=== PATIENT | female | born 1960 | race Caucasian/White ===

== ENCOUNTER 2019-12-11 04:25 | Inpatient (IN) ==
--- OUTSIDE RECORDS SUMMARY | 2019-12-11 04:27 | External Medical Summary | Continuity of Care Document ---
:1960 Author Name Cecy Parr Address Unavailable Unavailable , Care Team Providers Name Role Phone Dana Richards M.D. Unavailable [email or web address] Problems Active medical history not documented Allergies and Adverse Reactions Allergy history not documented Medications Medications not documented Procedures Procedures not documented Immunizations Immunizations not documented Plan of Treatment Planned Observations Planned Goals not documented Results No Known Results Results not documented
--- OUTSIDE RECORDS SUMMARY | 2019-12-11 04:28 | External Medical Summary | Continuity of Care Document ---
:1960 Author Name Cecy Parr Address Unavailable Unavailable , Care Team Providers Name Role Phone Dana Richards M.D. Unavailable [email or web address] Active medical history not documented Allergies and Adverse Reactions Allergy history not documented Medications Medications not documented Procedures Procedures not documented Immunizations Immunizations not documented Plan of Treatment Planned Observations Planned Goals not documented Results No Known Results Results not documented
[2019-12-11] MEDS ORDERED: dilTIAZem HCl 5 MG/ML 5 ML VIAL IV ONE (04:42)
[2019-12-11] MEDS ORDERED: METOPROLOL TARTRATE 1 MG/ML VIAL IV ONE (04:43)
[2019-12-11] MEDS ORDERED: NITROGLYCERIN 2% OINTMENT 30GM TUBE EXT STA (05:17)
[2019-12-11] MEDS ORDERED: FUROSEMIDE 40 MG/4 ML VIAL IV STA (05:17)
[2019-12-11] MEDS: METOPROLOL TARTRATE 1 MG/ML VIAL IV PRN ×2 (05:20→05:28)
[2019-12-11 05:25] LABS: Basophils # (auto) 0.02 K/uL (0-0.2); Basophils % (auto) 0.2 %; Eosinophils # (auto) 0.18 K/uL (0-0.5); Eosinophils % (auto) 1.6 %; Hematocrit (blood only) 39.3 % (37-47); Hemoglobin 12.6 g/dL (12.0-16.0); Immature Granulocytes # (auto) 0.03 K/uL (0.00-0.02); Immature Granulocytes % (auto) 0.3 %; Lymphocytes # (auto) 1.26 K/uL (1.2-3.4); Lymphocytes % (auto) 11.4 %; Mean Corpuscular Hemoglobin 27.9 pg (25-34); Mean Corpuscular Hgb Conc 32.1 g/dL (32-36); Mean Corpuscular Volume 86.9 fL (80-100); Mean Platelet Volume 11.7 fL (7.4-10.4); Monocytes # (auto) 0.62 K/uL (0.11-0.59); Monocytes % (auto) 5.6 %; Neutrophils % (auto) 80.9 %; Platelet Count 181 K/uL (130-400); RDW Coefficient of Variation 13.7 % (11.5-14.5); RDW Standard Deviation 43.4 fL (36.4-46.3); Red Blood Count 4.52 M/uL (4.2-5.4); White Blood Count 11.01 K/uL (4.8-10.8)
[2019-12-11 05:35] LABS: INR 1.1 (0.9-1.1); Partial Thromboplastin Ratio 0.9; Partial Thromboplastin Time 25.6 Seconds (21.0-31.0); Prothrombin Time 11.9 Seconds (9.0-12.0)
[2019-12-11 05:43] LABS: Alanine Aminotransferase 138 U/L (12-78); Albumin Level 3.6 gm/dl (3.4-5.0); Aspartate Aminotransferase 65 U/L (15-37); BUN Creatinine Ratio 21.7 (10-20); Blood Urea Nitrogen 23 mg/dl (7-18); Calcium 8.6 mg/dl (8.5-10.1); Carbon Dioxide 25 mmol/L (21-32); Chloride 107 mmol/L (98-107); Creatinine Clr Calc Pharmacy 65.3 ml/min; Est GFR (African American) 66.9; Est GFR (Non-African American) 57.7; Glucose 288 mg/dl (70-99); Magnesium 1.8 mg/dl (1.8-2.4); Potassium 4.1 mmol/L (3.5-5.1); Sodium 139 mmol/L (136-145)
[2019-12-11 05:48] LABS: Albumin Globulin Ratio 1.1 (0.9-2); Alkaline Phosphatase 128 U/L (45-117); Bilirubin,Total 0.5 mg/dl (0.2-1); Globulin 3.4 gm/dl (2.5-4.0); Troponin I < 0.015 ng/ml (0-0.045)
--- NOTE | 2019-12-11 06:16 | Emergency Department Note ---
History of Present Illness General Chief complaint: Shortness of Breath/Dyspnea Stated complaint: SOB, SUGAR RUNNING HIGH Source: patient Mode of arrival: ambulatory Limitations: no limitations History of Present Illness Provider complaint: Shortness of breath This patient is a 59-year-old female presents emergency department with shortness of breath x1 week, worsening over the last 2 days. Patient states she has been at work at [email or web address] which has become increasingly more difficult. She has multiple medical problems including history of atrial lesion with 2 ablations, diabetes and hypertension but has been off of all of her medications because of lack of insurance. Patient denies any recent fevers, chills, chest pain, abdominal pain, vomiting or diarrhea. Home Medications Home Medications Medication Instructions Recorded Confirmed Type amlodipine 10 mg PO DAILY 12/11/19 12/11/19 History aspirin 81 mg PO DAILY 12/11/19 12/11/19 History atorvastatin 40 mg PO DAILY 12/11/19 12/11/19 History bupropion HCl 300 mg PO DAILY 12/11/19 12/11/19 History carvedilol [Coreg] 25 mg PO BID 12/11/19 12/11/19 History cholecalciferol (vitamin D3) 25 mcg PO DAILY 12/11/19 12/11/19 History cyanocobalamin (vitamin B-12) 1,000 mcg PO DAILY 12/11/19 12/11/19 History ferrous sulfate 325 mg PO BID 12/11/19 12/11/19 History fluoxetine 20 mg PO DAILY 12/11/19 12/11/19 History glipizide 10 mg PO DAILY 12/11/19 12/11/19 History hydralazine 100 mg PO QAM 12/11/19 12/11/19 History linagliptin [Tradjenta] 5 mg PO DAILY 12/11/19 12/11/19 History losartan-hydrochlorothiazide 1 tab PO DAILY 12/11/19 12/11/19 History metformin 1,000 mg PO BID 12/11/19 12/11/19 History spironolactone 25 mg PO DAILY 12/11/19 12/11/19 History Allergies Allergy/AdvReac Type Severity Reaction Status Date / Time felodipine Allergy Unknown . Unverified 12/11/19 05:30 Past Med/Surg History Medical History (Updated 12/11/19 @ 06:28 by Marla Coffey MD) Atrial fibrillation Closed C5 fracture (Acute) Dyslipidemia Hypertension Mitral valve regurgitation LILY (obstructive sleep apnea) Panic disorder (Chronic) Surgical History (Updated 12/11/19 @ 06:22 by Marla Coffey MD) H/O cardiac radiofrequency ablation (Chronic) Social History Feels Safe at Home: Yes Smoking Status: Never smoker Review of Systems See HPI for pertinent positives & negatives. and A total of 10 systems reviewed and were otherwise negative Physical Exam Vital Signs Vital Signs - 24 hr 12/11/19 04:27 12/11/19 04:53 12/11/19 04:55 Temperature 36.3 C L Temperature Source Oral Pulse Rate 156 H 143 H 128 H Pulse Rate from SpO2 Sensor 130 H Respiratory Rate 22 23 Respiratory Effort / Characteristics Non-Labored Spontaneous Respiratory Depth Normal Blood Pressure 168/132 H 172/112 H 172/112 H Blood Pressure Mean 144 136 Pulse Oximetry 94 90 Oxygen Delivery Method Room Air Room Air Oxygen Flow Rate Sepsis Recent Fever Within 48 Hours No Sepsis New/Unexplained Change in Mental Status No Sepsis Action Taken by Nursing No Action Required 12/11/19 04:56 12/11/19 04:59 12/11/19 05:12 Temperature Temperature Source Pulse Rate 119 H 137 H Pulse Rate from SpO2 Sensor 130 H Respiratory Rate 31 H 33 H Respiratory Effort / Characteristics Non-Labored Spontaneous Respiratory Depth Normal Blood Pressure 167/134 H 185/118 H Blood Pressure Mean 150 137 Pulse Oximetry 90 90 Oxygen Delivery Method Room Air Oxygen Flow Rate 90 Sepsis Recent Fever Within 48 Hours Sepsis New/Unexplained Change in Mental Status Sepsis Action Taken by Nursing 12/11/19 05:13 12/11/19 05:15 12/11/19 05:16 Temperature Temperature Source Pulse Rate 127 H 129 H 110 H Pulse Rate from SpO2 Sensor 130 H 127 H 121 H Respiratory Rate 25 H 35 H 31 H Respiratory Effort / Characteristics Respiratory Depth Blood Pressure 161/119 H Blood Pressure Mean 152 Pulse Oximetry 91 91 91 Oxygen Delivery Method Oxygen Flow Rate Sepsis Recent Fever Within 48 Hours Sepsis New/Unexplained Change in Mental Status Sepsis Action Taken by Nursing 12/11/19 05:20 12/11/19 05:28 12/11/19 05:30 Temperature Temperature Source Pulse Rate 118 H 110 H 108 H Pulse Rate from SpO2 Sensor 108 H Respiratory Rate 28 H Respiratory Effort / Characteristics Respiratory Depth Blood Pressure 161/119 H 161/119 H Blood Pressure Mean Pulse Oximetry 96 Oxygen Delivery Method Nasal Cannula Oxygen Flow Rate 2 Sepsis Recent Fever Within 48 Hours Sepsis New/Unexplained Change in Mental Status Sepsis Action Taken by Nursing 12/11/19 05:31 12/11/19 05:46 Temperature Temperature Source Pulse Rate 109 H 100 H Pulse Rate from SpO2 Sensor 108 H 105 H Respiratory Rate 23 28 H Respiratory Effort / Characteristics Respiratory Depth Blood Pressure 164/124 H 133/90 Blood Pressure Mean 140 103 Pulse Oximetry 96 97 Oxygen Delivery Method Nasal Cannula Nasal Cannula Oxygen Flow Rate 2 2 Sepsis Recent Fever Within 48 Hours Sepsis New/Unexplained Change in Mental Status Sepsis Action Taken by Nursing Vital signs reviewed. General: Chronically ill-appearing 59-year-old female, in no significant distress. HEENT: No scleral icterus, PERRLA, neck supple. Atraumatic. Cardiovascular: Tachycardic and irregular Pulmonary: Increased work of breathing with crackles at the bases bilaterally Abdomen: Soft, nontender, nondistended, positive bowel sounds. Musculoskeletal: Atraumatic, no peripheral edema. Neurologic: Patient awake alert and oriented x 3 Skin: Warm, dry, no rash Course Administered Medications Metoprolol Tartrate (Lopressor) 5 mg IV Q5M PRN PRN Reason: Tachycardia Stop: 01/10/20 05:15 Last Admin: 12/11/19 05:28 Dose: 5 mg Documented by: [id number] Admin: 12/11/19 05:20 Dose: 5 mg Documented by: [id number] Discontinued Medications Diltiazem HCl (Cardizem) Confirm Administered Dose 25 mg IV .STK-MED ONE Stop: 12/11/19 04:43 Last Admin: 12/11/19 04:53 Dose: Not Given Documented by: [id number] Furosemide (Lasix) 40 mg IV NOW STA Stop: 12/11/19 05:18 Last Admin: 12/11/19 05:23 Dose: 40 mg Documented by: [id number] Metoprolol Tartrate (Lopressor) 5 mg IV Q5M ONE Stop: 12/11/19 04:44 Last Admin: 12/11/19 04:53 Dose: 5 mg Documented by: [id number] Nitroglycerin (Nitro-Bid 2%) 1 inch EXT NOW STA Stop: 12/11/19 05:18 Last Admin: 12/11/19 05:23 Dose: 1 inch Documented by: [id number] Critical Care Time Critical Care Time: Yes Total Critical Care Time: 45 I have personally spent greater than 45 minutes of critical care time in the direct management of this patient. This includes bedside care, interpretation of diagnostic studies, and testing, discussion with consultants, patient, and family members, and other required patient management activities. This 45 minutes is in excess of all separately billable procedures. Medical Decision Making Differential Diagnosis Differential diagnosis: Etiologies such as infections, reactive airway disease, COPD, pneumonia, pleural effusion, pulmonary edema, ARDS, pneumothorax, CHF, cardiac ischemia, cardiac tamponade, dysrhythmia, anemia, pulmonary embolism, musculoskeletal, gastrointestinal process, as well as others were entertained. Medical Records Attestation: I reviewed the patient's medical records. Home Medications Current Medication List: was personally reviewed by me Laboratory Data Attestation: I reviewed the patient's lab results. Result diagrams: 12/11/19 05:03 12/11/19 05:03 Lab Results 12/11/19 12/11/19 12/11/19 Range/Units 05:03 05:03 05:03 WBC 11.01 H (4.8-10.8) K/uL RBC 4.52 (4.2-5.4) M/uL Hgb 12.6 (12.0-16.0) g/dL Hct 39.3 (37-47) % MCV 86.9 (80-100) fL MCH 27.9 (25-34) pg MCHC 32.1 (32-36) g/dL RDW Std Deviation 43.4 (36.4-46.3) fL RDW Coeff of Winter 13.7 (11.5-14.5) % Plt Count 181 (130-400) K/uL MPV 11.7 H (7.4-10.4) fL Immature Gran % (Auto) 0.3 % Neut % (Auto) 80.9 % Lymph % (Auto) 11.4 % [place] % (Auto) 5.6 % Eos % (Auto) 1.6 % Baso % (Auto) 0.2 % Immature Gran # (Auto) 0.03 H (0.00-0.02) K/uL Neut # (Auto) 8.90 H (1.4-6.5) K/uL Lymph # (Auto) 1.26 (1.2-3.4) K/uL [place] # (Auto) 0.62 H (0.11-0.59) K/uL Eos # (Auto) 0.18 (0-0.5) K/uL Baso # (Auto) 0.02 (0-0.2) K/uL PT 11.9 (9.0-12.0) Seconds INR 1.1 (0.9-1.1) APTT 25.6 (21.0-31.0) Seconds PTT Ratio 0.9 Sodium 139 (136-145) mmol/L Potassium 4.1 (3.5-5.1) mmol/L Chloride 107 (98-107) mmol/L Carbon Dioxide 25 (21-32) mmol/L Anion Gap 7.0 (3-11) BUN 23 H (7-18) mg/dl Creatinine 1.05 (0.6-1.2) mg/dl Est Cr Clr Drug Dosing 65.3 ml/min Est GFR ( Amer) 66.9 Est GFR (Non-Af Amer) 57.7 BUN/Creatinine Ratio 21.7 H (10-20) Glucose 288 H (70-99) mg/dl Calcium 8.6 (8.5-10.1) mg/dl Magnesium 1.8 (1.8-2.4) mg/dl Total Bilirubin 0.5 (0.2-1) mg/dl AST 65 H (15-37) U/L ALT 138 H (12-78) U/L Alkaline Phosphatase 128 H (45-117) U/L Troponin I < 0.015 (0-0.045) ng/ml Total Protein 7.0 (6.4-8.2) gm/dl Albumin 3.6 (3.4-5.0) gm/dl Globulin 3.4 (2.5-4.0) gm/dl Albumin/Globulin Ratio 1.1 (0.9-2) Imaging Data Attestation: I personally reviewed and interpreted this imaging study as follows: My Impression: Chest x-ray to my interpretation reveals evidence of pulmonary edema. Mild cardiomegaly ECG Data Attestation: I personally reviewed and interpreted this ECG as follows: Indication: + SOB/dyspnea Rate (beats per minute): 147 Rhythm: + atrial fibrillation ECG Intervals/blocks: + Prolonged QT ECG [place]: + Normal ECG ST segments: + Normal ST segments and + Nonspecific ST abnormalities ECG Findings: + Q waves (Anterior); no PACs and no PVCs Blood Pressure Blood Pressure Findings: Elevated blood pressure Blood Pressure Disposition: further management by hospitalist MDM Narrative This patient was evaluated and appeared to be in some respiratory discomfort. An order for cardiac monitoring was placed and the patient was found to be in a rapid atrial fibrillation at approximately 145 bpm. Chest x-ray was performed and reveals pulmonary edema. Patient was given IV metoprolol x3 doses for rate control. She did receive topical nitroglycerin paste and 40 mg of IV Lasix. Patient's laboratory work reveals a negative troponin. Glucose is noted to be 288. Patient was symptomatically much improved after the above interventions. Heart rate was much improved at 113, continued atrial fibrillation. I did discuss the case with Dr. Alexa Allen of the hospitalist service who will evaluate the patient for admission and further management. Impression & Plan Atrial fibrillation with rapid ventricular response, CHF (congestive heart failure) Discharge Plan Visit Data Chief Complaint: Shortness of Breath/Dyspnea Stated Complaint: SOB, SUGAR RUNNING HIGH ED Provider: Mrala Coffey Discharge Problem: Atrial fibrillation with rapid ventricular response, CHF (congestive heart failure) Forms Stand Alone Forms: My [facility] Fluid Prescriptions Prescriptions: No Action amlodipine 10 mg Tablet 10 mg PO DAILY RF: 0 aspirin 81 mg Tablet,Delayed Release (Dr/Ec) 81 mg PO DAILY RF: 0 atorvastatin 40 mg Tablet 40 mg PO DAILY RF: 0 carvedilol [Coreg] 25 mg Tablet 25 mg PO BID RF: 0 cholecalciferol (vitamin D3) 25 mcg (1,000 unit) Tablet 25 mcg PO DAILY RF: 0 ferrous sulfate 325 mg (65 mg iron) Tablet 325 mg PO BID RF: 0 hydralazine 100 mg Tablet 100 mg PO UD RF: 0 losartan-hydrochlorothiazide 100-25 mg Tablet 1 tab PO DAILY RF: 0 metformin 1,000 mg Tablet 1,000 mg PO BID RF: 0 glipizide 10 mg Tablet 10 mg PO DAILY RF: 0 fluoxetine 20 mg capsule 20 mg PO DAILY RF: 0 bupropion HCl 300 mg tablet extended release 24 hr 300 mg PO DAILY RF: 0 Tradjenta 5 mg Tablet 5 mg PO DAILY RF: 0 cyanocobalamin (vitamin B-12) 1,000 mcg 1,000 mcg PO DAILY RF: 0 spironolactone 25 mg 25 mg PO DAILY RF: 0 Discharge Problem: CHF (congestive heart failure) Qualifiers: Heart failure type: unspecified Heart failure chronicity: acute Qualified Code(s): I50.9 - Heart failure, unspecified
[2019-12-11] MEDS ORDERED: HEPARIN 25000 UNIT/500 ML D5W IV ONE (07:02)
--- NOTE | 2019-12-11 07:36 | XRay Report ---
XR chest 1V portable CLINICAL HISTORY: Dyspnea COMPARISON STUDY: 07/31/2007 FINDINGS: There is mild asymmetric interstitial edema. There are left basilar opacities, likely repre senting atelectasis or focal edema although a superimposed inflammatory processes cannot be excluded. Small pleural effusions are suspected.[ IMPRESSION: 1. Mild asymmetric pulmonary edema pattern. Suspected small pleural effusions. Left basilar opacities likely representing focal edema or atelectasis although a superimposed infectious/inflammatory proce sses could appear similar. Clinical and radiographic follow-up is recommended ACT 112: Negative or not required by law. Electronically signed by: Jhony Coughlin M.D. 12/11/2019 7:35 AM
[2019-12-11] MEDS ORDERED: ACETAMINOPHEN 325 MG TAB PO PRN (08:16)
[2019-12-11] MEDS ORDERED: METOPROLOL TARTRATE 1 MG/ML VIAL IV PRN (08:16)
[2019-12-11] MEDS ORDERED: ONDANSETRON INJ 2 MG/ML 2 ML VIAL IV PRN (08:16)
[2019-12-11] MEDS ORDERED: Heparin IV Standard *NO* Bolus IV ONE (08:16)
[2019-12-11] MEDS ORDERED: NITROGLYCERIN SL 0.4 MG/TAB TAB SL PRN (08:16)
[2019-12-11] MEDS ORDERED: FUROSEMIDE 40 MG/4 ML VIAL IV SCH (09:00)
[2019-12-11] MEDS ORDERED: INSULIN GLARGINE SOLOSTAR 100 UNITS/ML 3 ML PEN SC SCH (09:00)
[2019-12-11] MEDS ORDERED: LOSARTAN/HCTZ 50/12.5MG TAB PO SCH (09:00)
[2019-12-11] MEDS ORDERED: INSULIN GLARGINE SOLOSTAR 100 UNITS/ML 3 ML PEN SC ONE (09:15)
[2019-12-11] MEDS ORDERED: MAGNESIUM SULFATE / D5W 1 GM/100 ML BAG IV ONE (09:30)
[2019-12-11] MEDS ORDERED: PERFLUTREN LIPID MICROSPHERE (DEFINITY) IV ONE (09:36)
[2019-12-11] MEDS: MAGNESIUM OXIDE 400 MG TAB PO SCH (09:52)
[2019-12-11] MEDS: ASPIRIN 81 MG ECTAB PO SCH (09:52)
[2019-12-11] MEDS: ATORVASTATIN 40 MG TAB PO SCH (09:52)
[2019-12-11] MEDS: INSULIN ASPART 100 UNITS/ML 3 ML PEN SC SCH ×4 (09:53→21:05)
[2019-12-11] MEDS: FUROSEMIDE 20 MG in SYRINGE 0 ML IV SCH ×2 (09:54→17:29)
[2019-12-11] MEDS: HEPARIN SODIUM/DEXTROSE 25,000 UNITS/500 ML BAG IV SCH ×2 (09:54→22:38)
--- NOTE | 2019-12-11 10:17 | History and Physical Report ---
DATE OF ADMISSION: 12/11/2019 CHIEF COMPLAINT: Shortness of breath. 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 The patient last saw Cardiology 1 year ago. The patient says since last 1 year, she did not saw any doctors. She stopped taking her medications since about a year ago because she could not afford the medications. She works in the [employer]. Since about a week, she is getting short of breath which is progressively getting worse. Today she woke up at 4:00 in the morning with acute shortness of breath. She could not breathe and that is the reason she came to the ER. She felt some pressure in the chest, felt sweaty. Has some headache. Denies any fevers, but has some feeling of cold. No nausea, no vomiting. Has some cough on and off, dry cough. Has some runny nose from her allergies and [place] live in [place]. Denies any earaches. No blurred visions, no sore throat, no dysphagia, no abdominal pain. Normal bladder movements, somewhat constipated. Denies any blood in the stools, no hematuria. No swelling in the legs. She says she does not sleep good. Ambulating okay in the house. ALLERGIES: TO FELODIPINE. PAST MEDICAL HISTORY: As mentioned above. PAST SURGICAL HISTORY: Ablation of the heart, colonoscopy, colposcopy of vulva with biopsy, removal of the left ovary, cholecystectomy. MEDICATIONS: Currently not taking any medications. FAMILY HISTORY: Significant for father had lung cancer. Mother has diabetes. Brother has stroke. SOCIAL HISTORY: No smoking, no alcohol, no drug use. REVIEW OF SYMPTOMS: As per HPI. Rest of review of symptoms negative. PHYSICAL EXAMINATION: GENERAL: The patient is morbidly obese, currently not in acute distress. VITAL SIGNS: Temperature 36.3, pulse in 120s, respiratory rate in 20s, blood pressure 148/110's, oxygen 96% on 2 liters. HEENT: No pallor, no icterus. Pupils equal, round, reactive to light. NECK: No JVD, no neck masses seen. CARDIOVASCULAR: S1, S2 heard. Irregular rhythm. No murmurs. RESPIRATORY SYSTEM: Normal AP diameter. No accessory muscle use. Mild bibasilar crackles. No wheezing. ABDOMEN: Soft, bowel sounds present. Nontender. No distention. CENTRAL NERVOUS SYSTEM: Cranial nerves II-XII grossly intact. Nonfocal. EXTREMITIES: No edema, no erythema. LABORATORY DATA: WBC 11, hemoglobin 12.6, hematocrit 10.3, platelets 181. PT 11.9, INR 1.1, APTT 25.6. Sodium 139, potassium 4.1, chloride 107, bicarb 25, BUN 23, creatinine 1.05, serum glucose 288, calcium 8.6, magnesium 1.8. Total bilirubin 0.5, AST 65, ALT 138, alkaline phosphatase 128. Troponin I less than 0.015. Chest x-ray: Pulmonary congestion. EKG: Atrial fibrillation with rapid ventricular response at a rate of 147. ASSESSMENT AND PLAN: This is a 59-year-old female who is noncompliant with her medications, presents with shortness of breath and found to be in AFib and CHF. 1. Rapid AFib. The patient stopped taking her medications about a year ago. She is supposed to be on Coreg 25 mg b.i.d. She has history of paroxysmal SVT, status post ablation in the past around 2007. Received IV Lopressor in the ER. Currently, her heart rates are improving. We will continue with IV Lopressor 5 mg q. 6 hours p.r.n., start on IV heparin. Follow serial cardiac enzymes, echocardiogram. Consult Cardiology for further recommendation. Keep her n.p.o. until seen by Cardiology. 2. CHF, probably acute on chronic diastolic. The patient is supposed to be on hydrochlorothiazide and spironolactone, not taking the medications. We will follow echocardiogram. Received IV Lasix 40 mg in the ER. We will continue with IV Lasix 20 mg b.i.d. for now until further evaluation by Cardiology and follow the response. 3. Diabetes, not taking the medications. We will place on Lantus 5 units b.i.d. and insulin sliding scale, currently n.p.o. We will follow HbA1c levels. 4. History of hypertension. Supposed to be on amlodipine, hydralazine, losartan, hydrochlorothiazide, Coreg. Currently placing her on IV Lopressor p.r.n. We will also continue with Cozaar and hydrochlorothiazide. Monitor blood pressure and adjust her medications. 5. Hyperlipidemia, supposed to be on statin. We will follow the fasting lipid profile. 6. Depression, supposed to be on Prozac and bupropion. Currently not on any medications. 7. Sleep apnea, non tolerant with the CPAP. May need nocturnal pulse ox while she is in the hospital. 8. Morbid obesity, needs counseling. 9. DVT prophylaxis, started on IV heparin. DISPOSITION: Admit to tele floor. Expect to discharge home and follow with family doctor. Level 1 full code as per my discussion with the patient. PT and OT prior to discharge. Social Service to help with discharge planning, and to help with her medications. EVON
[2019-12-11 11:47] LABS: Estimated Average Glucose 220 mg/dl; Hemoglobin A1C 9.3 % (4.5-5.6)
[2019-12-11 12:08] LABS: Chol HDL Ratio 3; Cholesterol 169 mg/dl (0-200); HDL Cholesterol 64 mg/dl; LDL Cholesterol Calculated 91 mg/dl; Triglycerides 72 mg/dl (0-150); Troponin I < 0.015 ng/ml (0-0.045); VLDL Cholesterol 14 mg/dl
[2019-12-11 13:37] LABS: Partial Thromboplastin Ratio 1.4; Partial Thromboplastin Time 37.7 Seconds (21.0-31.0)
[2019-12-11 13:52] LABS: Albumin Level 3.6 gm/dl (3.4-5.0); BUN Creatinine Ratio 18.4 (10-20); Bilirubin,Total 0.8 mg/dl (0.2-1); Creatinine Clr Calc Pharmacy 64.9 ml/min; Est GFR (African American) 67.6; Est GFR (Non-African American) 58.4; Globulin 3.6 gm/dl (2.5-4.0); Magnesium 2.2 mg/dl (1.8-2.4); Potassium 3.4 mmol/L (3.5-5.1); Total Protein 7.2 gm/dl (6.4-8.2)
[2019-12-11] MEDS ORDERED: HEPARIN IV BOLUS 6,000 UNITS in SYRINGE 0 ML IV ONE (14:00)
[2019-12-11] MEDS ORDERED: METOPROLOL TARTRATE 25 MG TAB PO ONE ×2 (14:00→15:15)
--- NOTE | 2019-12-11 14:57 | Cardiology Consultation ---
Date of Consultation December 11, 2019 Assessment & Plan (1) Atrial fibrillation with rapid ventricular response: Patient is a 59-year-old female with hypertension and hypertensive heart disease previously controlled with multiple drug regimen which included as of 1 year ago amlodipine 10 mg p.o. daily carvedilol 25 mg p.o. twice daily hydralazine 100 mg a.m. 100 mg mg noon and 50 mg p.m., losartan 100 mg daily hydrochlorothiazide 25 mg/day Patient presents now off medications for several months with hypertensive urgency, congestive heart failure and atrial fibrillation with rapid response time and duration uncertain. Patient is responding to IV diuretics and heart rate slowed with low-dose beta- paco Plan: Echocardiogram will be reviewed Increase metoprolol 25 mg p.o. every 6 hours for heart rate and blood pressure control Patient received losartan/hydrochlorothiazide we will change to losartan 50 mg/day Continue topical nitrates 1 inch every 6 Continue diuresis with furosemide 20 mg IV twice daily Amlodipine ordered to be restarted will change to p.m. dosing IV heparin already started will warrant anticoagulation long-term (2) Hypertensive urgency, malignant: Secondary to medication noncompliance (3) CHF (congestive heart failure): Echocardiogram reviewed demonstrates mild diffuse LV dysfunction. Troponins negative Suspect secondary to marked hypertension and uncontrolled atrial fibrillation (4) LILY (obstructive sleep apnea): History of Present Illness Reason for Consultation: Hypertensive urgency, new onset atrial fibrillation Requesting Physician: Dr. Bone Attending Physician: Varghese Bone MD History of Present Illness Patient is a 59-year-old female with prior ongoing and past history of 1. Longstanding hypertension with hypertensive heart disease 2. Paroxysmal supraventricular tachycardia status post AV ricky reentry tachycardia ablation 2007 3. Obstructive sleep apnea, intolerant of CPAP 4. Dyslipidemia 5. Type 2 diabetes mellitus Patient presents this admission noting having discontinued her medications due to cost multiple months in the past. Had been feeling poorly for approximately 1 week and presented due to signs of symptoms of shortness of breath and orthopnea. On presentation was found to be markedly hypertensive and in atrial fibrillation with uncontrolled ventricular response rate. Chest x-ray with moderate volume overload congestion. Patient was treated with IV metoprolol topical nitrates and IV furosemide now feeling more comfortable. Patient is referred now for further evaluation. As noted patient notes having felt poorly for at least 1 week's time but presented due to marked orthopnea and shortness of breath. No chest pains no sense of tachypalpitations no dizziness lightness syncope or near syncope. No prior history of TIA or stroke. No recent bleeding difficulties melena hematochezia. No fevers chills or unexplained infections. Weight is been gradually trending upward. Not following glucoses Mild headache on presentation but no other acute complaints no visual changes. Allergies Allergy/AdvReac Type Severity Reaction Status Date / Time felodipine Allergy Unknown . Unverified 12/11/19 05:30 Home Medications Home Medications Medication Instructions Recorded Confirmed Type amlodipine 10 mg PO DAILY 12/11/19 12/11/19 History aspirin 81 mg PO DAILY 12/11/19 12/11/19 History atorvastatin 40 mg PO DAILY 12/11/19 12/11/19 History bupropion HCl 300 mg PO DAILY 12/11/19 12/11/19 History carvedilol [Coreg] 25 mg PO BID 12/11/19 12/11/19 History cholecalciferol (vitamin D3) 25 mcg PO DAILY 12/11/19 12/11/19 History cyanocobalamin (vitamin B-12) 1,000 mcg PO DAILY 12/11/19 12/11/19 History ferrous sulfate 325 mg PO BID 12/11/19 12/11/19 History fluoxetine 20 mg PO DAILY 12/11/19 12/11/19 History glipizide 10 mg PO DAILY 12/11/19 12/11/19 History hydralazine 100 mg PO UD 12/11/19 12/11/19 History linagliptin [Tradjenta] 5 mg PO DAILY 12/11/19 12/11/19 History losartan-hydrochlorothiazide 1 tab PO DAILY 12/11/19 12/11/19 History metformin 1,000 mg PO BID 12/11/19 12/11/19 History spironolactone 25 mg PO DAILY 12/11/19 12/11/19 History Patient History Medical History (Updated 12/11/19 @ 15:13 by Sb Arana MD) Atrial fibrillation Closed C5 fracture (Acute) Dyslipidemia Hypertension Mitral valve regurgitation LILY (obstructive sleep apnea) Panic disorder (Chronic) Surgical History (Updated 12/11/19 @ 06:22 by Marla Coffey MD) H/O cardiac radiofrequency ablation (Chronic) Social History Preferred Language: Citizen Of [place] Communication Ability: Effective Duplex Trimmer Required: No Beliefs That Will Affect Care: None Current Living Situation: Spouse Other Information That Helps Us Care for You: No Feels Safe at Home: Yes Safety Concerns: Feels Safe At This Time Smoking Status: Former smoker Hx Alcohol Use: No Hx Substance Use: No Physical Exam Constitutional: + morbidly obese Eyes: PERRL, conjunctivae normal, anicteric sclerae ENMT: external ear and nose normal, oropharynx normal Respiratory: Auscultation: + diminished lung sounds and + rales (Basilar) Cardiovascular: Rate/Rhythm: + tachycardic and + irregularly irregular Heart Sounds: normal S1, normal S2 and + murmur (Grade 1/6 systolic no diastolic) Palpation: no heave and S3 nonpalpable Vessels: normal peripheral pulses; no carotid bruit Extremities: no edema Gastrointestinal (Abdomen): normal bowel sounds, soft, nontender, no hepatosplenomegaly Musculoskeletal: no cyanosis or clubbing, extremities motor strength 5/5 Neurologic: PERRL, EOMI, accommodation nl, no face palsy, no dysarthria Psychiatric: A+Ox3, euthymic affect Results & Data ([facility]) Vital Signs (Past 12 Hours) Vital Signs Temp Pulse Pulse Resp BP BP Pulse Ox 12/11/19 12:00 36.7 C 108 H 16 157/87 H 92 12/11/19 08:21 36.5 C 110 H 20 162/101 H 93 12/11/19 07:30 105 H 23 158/132 H 95 12/11/19 07:16 108 H 26 H 145/116 H 95 12/11/19 07:15 107 H 24 96 12/11/19 07:00 112 H 23 127/102 H 95 12/11/19 06:47 113 H 22 96 12/11/19 06:46 111 H 25 H 148/127 H 96 12/11/19 06:31 121 H 33 H 173/135 H 96 12/11/19 06:16 120 H 26 H 187/162 H 96 12/11/19 06:15 113 H 31 H 96 12/11/19 06:02 103 H 22 144/98 H 97 12/11/19 06:00 106 H 26 H 96 12/11/19 05:47 99 H 24 97 12/11/19 05:46 100 H 28 H 133/90 97 12/11/19 05:31 109 H 23 164/124 H 96 12/11/19 05:30 108 H 28 H 96 12/11/19 05:28 110 H 161/119 H 12/11/19 05:20 118 H 161/119 H 12/11/19 05:16 110 H 31 H 161/119 H 91 12/11/19 05:15 129 H 35 H 91 12/11/19 05:13 127 H 25 H 91 12/11/19 05:12 137 H 33 H 185/118 H 90 12/11/19 04:59 119 H 31 H 167/134 H 12/11/19 04:56 90 12/11/19 04:55 128 H 23 172/112 H 90 12/11/19 04:53 143 H 172/112 H 12/11/19 04:27 36.3 C L 156 H 22 168/132 H 94 Laboratory Results Laboratory Results - last 24 hr 12/11/19 12/11/19 12/11/19 05:03 05:03 05:03 WBC 11.01 H RBC 4.52 Hgb 12.6 Hct 39.3 MCV 86.9 MCH 27.9 MCHC 32.1 RDW Std Deviation 43.4 RDW Coeff of Winter 13.7 Plt Count 181 MPV 11.7 H Immature Gran % (Auto) 0.3 Neut % (Auto) 80.9 Lymph % (Auto) 11.4 [place] % (Auto) 5.6 Eos % (Auto) 1.6 Baso % (Auto) 0.2 Immature Gran # (Auto) 0.03 H Neut # (Auto) 8.90 H Lymph # (Auto) 1.26 [place] # (Auto) 0.62 H Eos # (Auto) 0.18 Baso # (Auto) 0.02 PT 11.9 INR 1.1 APTT 25.6 PTT Ratio 0.9 Sodium 139 Potassium 4.1 Chloride 107 Carbon Dioxide 25 Anion Gap 7.0 BUN 23 H Creatinine 1.05 Est Cr Clr Drug Dosing 65.3 Est GFR ( Amer) 66.9 Est GFR (Non-Af Amer) 57.7 BUN/Creatinine Ratio 21.7 H Glucose 288 H POC Glucose Estimat Average Glucose Hemoglobin A1c Calcium 8.6 Magnesium 1.8 Total Bilirubin 0.5 AST 65 H ALT 138 H Alkaline Phosphatase 128 H Troponin I < 0.015 Total Protein 7.0 Albumin 3.6 Globulin 3.4 Albumin/Globulin Ratio 1.1 Triglycerides Cholesterol LDL Cholesterol, Calc VLDL Cholesterol, Calc HDL Cholesterol Cholesterol/HDL Ratio TSH 12/11/19 12/11/19 12/11/19 08:14 08:31 08:32 WBC RBC Hgb Hct MCV MCH MCHC RDW Std Deviation RDW Coeff of Winter Plt Count MPV Immature Gran % (Auto) Neut % (Auto) Lymph % (Auto) [place] % (Auto) Eos % (Auto) Baso % (Auto) Immature Gran # (Auto) Neut # (Auto) Lymph # (Auto) [place] # (Auto) Eos # (Auto) Baso # (Auto) PT INR APTT PTT Ratio Sodium 141 Potassium 3.4 L D Chloride 105 Carbon Dioxide 28 Anion Gap 8.0 BUN 19 H Creatinine 1.04 Est Cr Clr Drug Dosing 64.9 Est GFR ( Amer) 67.6 Est GFR (Non-Af Amer) 58.4 BUN/Creatinine Ratio 18.4 Glucose 233 H POC Glucose 315 H* 322 H* Estimat Average Glucose Hemoglobin A1c Calcium 9.0 Magnesium 2.2 Total Bilirubin 0.8 AST 46 H ALT 135 H Alkaline Phosphatase 130 H Troponin I Total Protein 7.2 Albumin 3.6 Globulin 3.6 Albumin/Globulin Ratio 1.0 Triglycerides Cholesterol LDL Cholesterol, Calc VLDL Cholesterol, Calc HDL Cholesterol Cholesterol/HDL Ratio TSH 12/11/19 12/11/19 12/11/19 11:18 11:18 11:33 WBC RBC Hgb Hct MCV MCH MCHC RDW Std Deviation RDW Coeff of Winter Plt Count MPV Immature Gran % (Auto) Neut % (Auto) Lymph % (Auto) [place] % (Auto) Eos % (Auto) Baso % (Auto) Immature Gran # (Auto) Neut # (Auto) Lymph # (Auto) [place] # (Auto) Eos # (Auto) Baso # (Auto) PT INR APTT PTT Ratio Sodium Potassium Chloride Carbon Dioxide Anion Gap BUN Creatinine Est Cr Clr Drug Dosing Est GFR ( Amer) Est GFR (Non-Af Amer) BUN/Creatinine Ratio Glucose POC Glucose 264 H Estimat Average Glucose 220 Hemoglobin A1c 9.3 H Calcium Magnesium Total Bilirubin AST ALT Alkaline Phosphatase Troponin I < 0.015 Total Protein Albumin Globulin Albumin/Globulin Ratio Triglycerides 72 Cholesterol 169 LDL Cholesterol, Calc 91 VLDL Cholesterol, Calc 14 HDL Cholesterol 64 Cholesterol/HDL Ratio 3 TSH 1.580 12/11/19 13:02 WBC RBC Hgb Hct MCV MCH MCHC RDW Std Deviation RDW Coeff of Winter Plt Count MPV Immature Gran % (Auto) Neut % (Auto) Lymph % (Auto) [place] % (Auto) Eos % (Auto) Baso % (Auto) Immature Gran # (Auto) Neut # (Auto) Lymph # (Auto) [place] # (Auto) Eos # (Auto) Baso # (Auto) PT INR APTT 37.7 H PTT Ratio 1.4 Sodium Potassium Chloride Carbon Dioxide Anion Gap BUN Creatinine Est Cr Clr Drug Dosing Est GFR ( Amer) Est GFR (Non-Af Amer) BUN/Creatinine Ratio Glucose POC Glucose Estimat Average Glucose Hemoglobin A1c Calcium Magnesium Total Bilirubin AST ALT Alkaline Phosphatase Troponin I Total Protein Albumin Globulin Albumin/Globulin Ratio Triglycerides Cholesterol LDL Cholesterol, Calc VLDL Cholesterol, Calc HDL Cholesterol Cholesterol/HDL Ratio TSH (1) CHF (congestive heart failure) Heart failure chronicity: acute Heart failure type: unspecified Qualified Code(s): I50.9 - Heart failure, unspecified
[2019-12-11] MEDS: ACETAMINOPHEN 325 MG TAB PO PRN (15:36)
[2019-12-11] MEDS: NITROGLYCERIN 2% OINTMENT 30GM TUBE EXT SCH ×2 (15:41→21:11)
[2019-12-11] MEDS ORDERED: POTASSIUM CHLORIDE 20 MEQ TABCR PO ONE (16:00)
--- NOTE | 2019-12-11 16:49 | Hospitalist Progress Note ---
Date of Service December 11, 2019 Assessment & Plan (1) Atrial fibrillation with rapid ventricular response: -"This is a 59-year-old female with past medical history significant for type 2 diabetes; hyperlipidemia; obstructive sleep apnea, non tolerant to CPAP; hypertensive heart disease; history of hypertension; history of aortic valve sclerosis; obesity; history of uterine leiomyoma; history of ocular hypertension; depression,panic disorder, history of paroxysmal supraventricular tachycardia, the patient is 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 The patient last saw Cardiology 1 year ago. The patient says since last 1 year, she did not saw any doctors. She stopped taking her medications since about a year ago because she could not afford the medications" because of loss of health insurance -presented to the ED on 12/11/2019 with shortness of breath symptoms and also because of hyperglycemia and found to have atrial fibrillation with rapid ventricualr response -after initial empiric treatments by ED provider and admitting physician including starting IV heparin drip on admission, cardiology currently titrating rate control medication as metoprolol 25 mg q6 hours for now -continue to monitor on telemetry (2) Diabetes type 2, uncontrolled: -Hemoglobin 9.3 on 12/11/2019 -on sliding scale insulin, given 10 units of Lantus with plans for 10 units daily for now and possibly need up titration -diabetic education, will need outpatient ophthalmology testing because of diabetes -diabetic diet Dyslipidemia -LDL 93, give statin (3) Hypertension: -as per cardiology 12/11/2019 "Patient received losartan/hydrochlorothiazide we will change to losartan 50 mg/day. Continue topical nitrates 1 inch every 6h. Continue diuresis with furosemide 20 mg IV twice daily. Amlodipine ordered to be restarted will change to p.m. dosing" (4) CHF (congestive heart failure): -as per cardiology "Echocardiogram reviewed demonstrates mild diffuse LV dysfunction. Troponins negative. Suspect secondary to marked hypertension and uncontrolled atrial fibrillation" Sleep apnea, non tolerant with the CPAP Morbid obesity with BMI 39.1 -on room air currently. monitor vitals at night -will need primary care involvement for weight loss strategies Depression -not on previous home medications of Prozac and bupropion -patient is tearful when discussing with her current health issues on 12/11/2019 DVT prophylaxis: on IV heparin drip Full Code Admission and Anticipated Discharge Date Admission Date: December 11, 2019 Subjective Patient with atrial fibrillation with heart rates in low 100s. On IV heparin. no chest pain. no abdomen pain. no nausea. no vomiting. no headache. no dizziness Review of Systems Review of Systems: All systems reviewed & are unremarkable except as noted in Subjective Physical Exam Constitutional: + obese and comfortable Eyes: PERRL, conjunctivae normal, anicteric sclerae EOM intact bilaterally ENMT: external ear and nose normal, oropharynx normal Neck: normal visual inspection Respiratory: normal respiratory effort, lungs clear to auscultation Cardiovascular: Rate/Rhythm: + tachycardic and + irregularly irregular Gastrointestinal (Abdomen): normal bowel sounds, soft, nontender, no hepatosplenomegaly Musculoskeletal: Head/Neck/Chest: normocephalic and head atraumatic Neurologic: PERRL, EOMI, accommodation nl, no face palsy, no dysarthria CN's II-XI intact bilaterally Psychiatric: Orientation: alert, oriented x 3 and cooperative Results & Data Results & Data ([facility]) Vital Signs (Past 12 Hours) Vital Signs Temp Pulse Pulse Resp BP BP Pulse Ox 12/11/19 15:12 36.9 C 108 H 21 145/73 H 93 12/11/19 12:00 36.7 C 108 H 16 157/87 H 92 12/11/19 08:21 36.5 C 110 H 20 162/101 H 93 12/11/19 07:30 105 H 23 158/132 H 95 12/11/19 07:16 108 H 26 H 145/116 H 95 12/11/19 07:15 107 H 24 96 12/11/19 07:00 112 H 23 127/102 H 95 12/11/19 06:47 113 H 22 96 12/11/19 06:46 111 H 25 H 148/127 H 96 12/11/19 06:31 121 H 33 H 173/135 H 96 12/11/19 06:16 120 H 26 H 187/162 H 96 12/11/19 06:15 113 H 31 H 96 12/11/19 06:02 103 H 22 144/98 H 97 12/11/19 06:00 106 H 26 H 96 12/11/19 05:47 99 H 24 97 12/11/19 05:46 100 H 28 H 133/90 97 12/11/19 05:31 109 H 23 164/124 H 96 12/11/19 05:30 108 H 28 H 96 12/11/19 05:28 110 H 161/119 H 12/11/19 05:20 118 H 161/119 H 12/11/19 05:16 110 H 31 H 161/119 H 91 12/11/19 05:15 129 H 35 H 91 12/11/19 05:13 127 H 25 H 91 12/11/19 05:12 137 H 33 H 185/118 H 90 12/11/19 04:59 119 H 31 H 167/134 H 12/11/19 04:56 90 12/11/19 04:55 128 H 23 172/112 H 90 12/11/19 04:53 143 H 172/112 H (1) CHF (congestive heart failure) Heart failure chronicity: acute Heart failure type: unspecified Qualified Code(s): I50.9 - Heart failure, unspecified
[2019-12-11] MEDS ORDERED: METOPROLOL TARTRATE 25 MG TAB PO SCH (21:00)
[2019-12-11] MEDS: METOPROLOL TARTRATE 25 MG TAB PO SCH (21:05)
[2019-12-11] MEDS: AMLODIPINE BESYLATE 5 MG TAB PO SCH (21:05)
[2019-12-11 21:08] LABS: Partial Thromboplastin Ratio 2.6
[2019-12-11 21:16] LABS: Partial Thromboplastin Time 71.8 Seconds (21.0-31.0)
--- NOTE | 2019-12-11 23:37 | Electrocardiogram Report ---
Test Reason : Blood Pressure : / mmHG Vent. Rate : 147 BPM Atrial Rate : 150 BPM P-R Int : 000 ms QRS Dur : 066 ms QT Int : 304 ms P-R-T Axes : 000 034 -56 degrees QTc Int : 475 ms Poor data quality, interpretation may be adversely affected Atrial fibrillation with rapid ventricular response Septal infarct , age undetermined Abnormal ECG When compared with ECG of 07-SEP-2010 12:59, Atrial fibrillation has replaced Sinus rhythm HR has increased by 81 bpm Confirmed by Maurilio Oconnell ([id number]) on 12/11/2019 11:36:37 PM Referred By: REFERRED SELF Confirmed By:Maurilio Oconnell
[2019-12-12] MEDS: METOPROLOL TARTRATE 25 MG TAB PO SCH ×4 (01:23→17:17)
[2019-12-12] MEDS: ACETAMINOPHEN 325 MG TAB PO PRN (02:04)
[2019-12-12 03:19] LABS: Partial Thromboplastin Ratio 2.2
[2019-12-12 03:43] LABS: Partial Thromboplastin Time 61.8 Seconds (21.0-31.0)
[2019-12-12] MEDS: NITROGLYCERIN 2% OINTMENT 30GM TUBE EXT SCH ×2 (04:59→10:20)
[2019-12-12 06:11] LABS: Basophils # (auto) 0.03 K/uL (0-0.2); Basophils % (auto) 0.3 %; Eosinophils % (auto) 2.1 %; Hematocrit (blood only) 39.3 % (37-47); Hemoglobin 12.6 g/dL (12.0-16.0); Immature Granulocytes # (auto) 0.01 K/uL (0.00-0.02); Immature Granulocytes % (auto) 0.1 %; Lymphocytes # (auto) 2.07 K/uL (1.2-3.4); Lymphocytes % (auto) 21.5 %; Mean Corpuscular Hemoglobin 28.1 pg (25-34); Mean Corpuscular Hgb Conc 32.1 g/dL (32-36); Mean Corpuscular Volume 87.5 fL (80-100); Mean Platelet Volume 11.7 fL (7.4-10.4); Monocytes # (auto) 0.68 K/uL (0.11-0.59); Monocytes % (auto) 7.1 %; Neutrophils # (auto) 6.65 K/uL (1.4-6.5); Neutrophils % (auto) 68.9 %; Platelet Count 196 K/uL (130-400); RDW Coefficient of Variation 13.6 % (11.5-14.5); RDW Standard Deviation 43.4 fL (36.4-46.3); Red Blood Count 4.49 M/uL (4.2-5.4); White Blood Count 9.64 K/uL (4.8-10.8)
[2019-12-12 06:33] LABS: INR 1.2 (0.9-1.1); Partial Thromboplastin Ratio 2.5; Prothrombin Time 12.4 Seconds (9.0-12.0)
[2019-12-12 06:35] LABS: Partial Thromboplastin Time 69.9 Seconds (21.0-31.0)
[2019-12-12 06:53] LABS: Albumin Level 3.5 gm/dl (3.4-5.0); BUN Creatinine Ratio 17.5 (10-20); Bilirubin,Total 0.8 mg/dl (0.2-1); Calcium 9.1 mg/dl (8.5-10.1); Creatinine Clr Calc Pharmacy 58.9 ml/min; Est GFR (African American) 61.2; Est GFR (Non-African American) 52.8; Globulin 3.5 gm/dl (2.5-4.0); Magnesium 2.1 mg/dl (1.8-2.4); Potassium 3.9 mmol/L (3.5-5.1)
[2019-12-12] MEDS: FUROSEMIDE 20 MG in SYRINGE 0 ML IV SCH (07:54)
[2019-12-12] MEDS: INSULIN GLARGINE SOLOSTAR 100 UNITS/ML 3 ML PEN SC SCH (07:54)
[2019-12-12] MEDS: LOSARTAN POTASSIUM 50 MG TAB PO SCH (07:55)
[2019-12-12] MEDS: ATORVASTATIN 40 MG TAB PO SCH (07:55)
[2019-12-12] MEDS: MAGNESIUM OXIDE 400 MG TAB PO SCH (07:55)
[2019-12-12] MEDS: ASPIRIN 81 MG ECTAB PO SCH (07:55)
[2019-12-12] MEDS: INSULIN ASPART 100 UNITS/ML 3 ML PEN SC SCH ×4 (07:56→21:00)
[2019-12-12] MEDS ORDERED: AMLODIPINE BESYLATE 5 MG TAB PO SCH (09:00)
--- NOTE | 2019-12-12 09:39 | XRay Report ---
XR chest 2V PA/lateral CLINICAL HISTORY: follow lung infiltrates COMPARISON STUDY: Chest radiograph December 11, 2019. FINDINGS: There is no pneumothorax. Small bilateral pleural effusions are similar to prior exam. Left basilar opacity has slightly improved. Interstitial thickening has slightly improved. IMPRESSION: 1. Mild left basilar opacity which may reflect pneumonia or atelectasis, slightly improved since prio r exam. Radiographic follow up is recommended. 2. Small bilateral pleural effusions. 3. Interval improvement suspected mild pulmonary edema. ACT 112: Negative or not required by law. Electronically signed by: Jefferson Thorpe M.D. 12/12/2019 9:38 AM
--- NOTE | 2019-12-12 13:44 | Cardiology Progress Note ---
Date of Service December 12, 2019 Assessment & Plan (1) Atrial fibrillation with rapid ventricular response: Patient is a 59-year-old female with hypertension and hypertensive heart disease previously controlled with multiple drug regimen which included as of 1 year ago amlodipine 10 mg p.o. daily carvedilol 25 mg p.o. twice daily hydralazine 100 mg a.m. 100 mg mg noon and 50 mg p.m., losartan 100 mg daily hydrochlorothiazide 25 mg/day Patient presents now off medications for several months with hypertensive urgency, congestive heart failure and atrial fibrillation with rapid response time and duration uncertain. Patient is responding to IV diuretics and heart rate slowed with low-dose beta- paco Plan: Blood pressure significantly improved with reinstitution of previous medications. She remains in atrial fibrillation that is rate controlled. Continue current dose of metoprolol and will transition to succinate 100 mg daily in the a.m. for ease of use. Continue losartan and amlodipine. Continue warfarin bridge with heparin until INR therapeutic. We will hold diuretics in the a.m. and follow volume status clinically. Continue to monitor on telemetry. (2) Hypertensive urgency, malignant: Secondary to medication noncompliance (3) CHF (congestive heart failure): Echocardiogram reviewed demonstrates mild diffuse LV dysfunction. Troponins negative Suspect secondary to marked hypertension and uncontrolled atrial fibrillation (4) LILY (obstructive sleep apnea): Subjective Patient seen and examined, chart reviewed. States that she is feeling well today. And denies any chest pain, shortness of breath, palpitations, lightheadedness, dizziness or syncope. She is anxious for discharge so she may return to work. Telemetry reviewed: Atrial fibrillation rate controlled. Review of Systems Review of Systems: All systems reviewed & are unremarkable except as noted in HPI & below Physical Exam Physical Exam: General: Awake, alert and oriented x 3. No acute distress. HEENT: Normocephalic, atraumatic. Pupils equal, round and reactive to light and accommodation. Extraocular muscles are intact. Anicteric sclera. Moist mucous membranes. Neck: No JVD. No bruit. Cardiovascular: irregularly irregular, unable to appreciate murmur, rub or gallop. Pulmonary: Clear to auscultation bilaterally. No rales, rhonchi, or wheezing. Abdomen: Bowel sounds x 4, soft. No rebound, guarding or tenderness. No organomegaly. Extremities: No clubbing, cyanosis or edema. +2 pedal pulses bilaterally. Skin: Warm and dry. Results & Data Vital Signs (Past 12 Hours) Vital Signs Temp Pulse Resp BP BP Pulse Ox 12/12/19 12:00 37.2 C 90 18 149/94 H 93 12/12/19 07:02 36.6 C 81 18 131/79 93 12/12/19 04:12 36.7 C 89 18 144/84 H 93 (1) CHF (congestive heart failure) Heart failure chronicity: acute Heart failure type: unspecified Qualified Code(s): I50.9 - Heart failure, unspecified
[2019-12-12] MEDS: HEPARIN SODIUM/DEXTROSE 25,000 UNITS/500 ML BAG IV SCH (14:15)
[2019-12-12 14:23] LABS: Partial Thromboplastin Ratio 2.1
--- NOTE | 2019-12-12 15:26 | Hospitalist Progress Note ---
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 The patient last saw Cardiology 1 year ago. The patient says since last 1 year, she did not saw any doctors. She stopped taking her medications since about a year ago because she could not afford the medications" because of loss of health insurance -presented to the ED on 12/11/2019 with shortness of breath symptoms and also because of hyperglycemia and found to have atrial fibrillation with rapid ventricular response -after initial empiric treatments by ED provider and admitting physician including starting IV heparin drip on admission, cardiology currently titrating rate control medication -continue to monitor on telemetry, still with atrial fibrillation but heart rate controlled. transition from metoprolol 25 mg q6 hours to 100 mg daily starting on 12/13/2019 -patient has been on IV heparin drip and cardiology allowing for warfarin to be started on 12/12/2019 with the IV heparin drip fro stroke risk prevention of atrial fibrillation. Patient agreeable to stay as inpatient for now but as other aspects of health are improving am concerned that given her finacial issues that patient will not stay until bridged full to INR between 2 to 3, ongoing discussion with patient on day by day basis (2) Diabetes type 2, uncontrolled: -Hemoglobin 9.3 on 12/11/2019 -off diabetes medications at home -on sliding scale insulin -Lantus increased from 10 units this AM on 12/12/2019 to additional 5 units qhs, titrate up as needed given 10 units of Lantus with plans for 10 units daily for now and possibly need up titration -diabetic education, will need outpatient ophthalmology testing because of diabetes -diabetic diet Dyslipidemia -LDL 93, give statin (3) Hypertension: -as per cardiology 12/11/2019 "Patient received losartan/hydrochlorothiazide we will change to losartan 50 mg/day. Continue topical nitrates 1 inch every 6h. Continue diuresis with furosemide 20 mg IV twice daily. Amlodipine ordered to be restarted will change to p.m. dosing" -currently Continue losartan and amlodipine, titrate down the furosemide (4) CHF (congestive heart failure): - Ejection fraction is 40 to 45% and moderate global hypokinesis of left ventricle. as per cardiology "Echocardiogram reviewed demonstrates mild diffuse LV dysfunction. Troponins negative. Suspect secondary to marked hypertension and uncontrolled atrial fibrillation." Sleep apnea, non tolerant with the CPAP Morbid obesity with BMI 39.1 -on room air currently. -will need primary care involvement for weight loss strategies Depression -not on previous home medications of Prozac and bupropion -patient was tearful when discussing with her current health issues on 12/11/2019. currently her mood is better DVT prophylaxis: on IV heparin drip Full Code Admission and Anticipated Discharge Date Admission Date: December 11, 2019 Subjective No acute distress. patient remains on room air. she reports she is feeling better. no nausea. no vomiting. no dizziness. no lightheadedness. we had long discussion about current health issues, medication compliance, finanicial issues including her job. patient agrees to continue inpatient hospital treatment Review of Systems Review of Systems: All systems reviewed & are unremarkable except as noted in Subjective Physical Exam Constitutional: + obese and comfortable Eyes: PERRL, conjunctivae normal, anicteric sclerae EOM intact bilaterally ENMT: external ear and nose normal, oropharynx normal Neck: normal visual inspection Respiratory: normal respiratory effort, lungs clear to auscultation Cardiovascular: Rate/Rhythm: regular rhythm and + irregularly irregular Gastrointestinal (Abdomen): normal bowel sounds, soft, nontender, no hepatosplenomegaly Musculoskeletal: Head/Neck/Chest: normocephalic and head atraumatic Neurologic: PERRL, EOMI, accommodation nl, no face palsy, no dysarthria CN's II-XI intact bilaterally Psychiatric: Orientation: alert, oriented x 3 and cooperative Results & Data Results & Data ([facility]) Vital Signs (Past 12 Hours) Vital Signs Temp Pulse Resp BP BP Pulse Ox 12/12/19 12:00 37.2 C 90 18 149/94 H 93 12/12/19 07:02 36.6 C 81 18 131/79 93 12/12/19 04:12 36.7 C 89 18 144/84 H 93 (1) CHF (congestive heart failure) Heart failure chronicity: acute Heart failure type: unspecified Qualified Code(s): I50.9 - Heart failure, unspecified
[2019-12-12] MEDS ORDERED: WARFARIN SOD 5 MG TAB PO SCH (16:00)
[2019-12-12] MEDS ORDERED: FUROSEMIDE 20 MG TAB PO SCH (17:00)
[2019-12-12] MEDS: METFORMIN HCL 500 MG TAB PO SCH (17:44)
[2019-12-12] MEDS ORDERED: INSULIN GLARGINE SOLOSTAR 100 UNITS/ML 3 ML PEN SC SCH (21:00)
[2019-12-12] MEDS: AMLODIPINE BESYLATE 5 MG TAB PO SCH (21:02)
[2019-12-13] MEDS: HEPARIN SODIUM/DEXTROSE 25,000 UNITS/500 ML BAG IV SCH ×4 (05:53→22:29)
[2019-12-13 07:14] LABS: Basophils # (auto) 0.02 K/uL (0-0.2); Basophils % (auto) 0.3 %; Eosinophils # (auto) 0.21 K/uL (0-0.5); Eosinophils % (auto) 2.6 %; Hematocrit (blood only) 40.4 % (37-47); Hemoglobin 12.9 g/dL (12.0-16.0); Immature Granulocytes # (auto) 0.02 K/uL (0.00-0.02); Immature Granulocytes % (auto) 0.3 %; Lymphocytes # (auto) 1.81 K/uL (1.2-3.4); Lymphocytes % (auto) 22.6 %; Mean Corpuscular Hemoglobin 27.6 pg (25-34); Mean Corpuscular Hgb Conc 31.9 g/dL (32-36); Mean Corpuscular Volume 86.3 fL (80-100); Mean Platelet Volume 11.5 fL (7.4-10.4); Monocytes # (auto) 0.56 K/uL (0.11-0.59); Neutrophils # (auto) 5.38 K/uL (1.4-6.5); Neutrophils % (auto) 67.2 %; Platelet Count 173 K/uL (130-400); RDW Coefficient of Variation 13.6 % (11.5-14.5); RDW Standard Deviation 42.8 fL (36.4-46.3); Red Blood Count 4.68 M/uL (4.2-5.4)
[2019-12-13] MEDS: ASPIRIN 81 MG ECTAB PO SCH (07:44)
[2019-12-13] MEDS: LOSARTAN POTASSIUM 50 MG TAB PO SCH (07:44)
[2019-12-13] MEDS: ATORVASTATIN 40 MG TAB PO SCH (07:44)
[2019-12-13] MEDS: MAGNESIUM OXIDE 400 MG TAB PO SCH (07:44)
[2019-12-13] MEDS: METOPROLOL SUCC 50MG EXT REL TAB PO SCH (07:45)
[2019-12-13] MEDS: INSULIN GLARGINE SOLOSTAR 100 UNITS/ML 3 ML PEN SC SCH (07:45)
[2019-12-13] MEDS: METFORMIN HCL 500 MG TAB PO SCH ×2 (07:46→17:08)
[2019-12-13] MEDS: INSULIN ASPART 100 UNITS/ML 3 ML PEN SC SCH ×4 (07:47→20:53)
[2019-12-13 07:48] LABS: Albumin Level 3.3 gm/dl (3.4-5.0); BUN Creatinine Ratio 19.1 (10-20); Calcium 9.8 mg/dl (8.5-10.1); Creatinine Clr Calc Pharmacy 75.2 ml/min; Est GFR (African American) 82.8; Est GFR (Non-African American) 71.4; INR 1.2 (0.9-1.1); Partial Thromboplastin Ratio 2.6; Potassium 3.5 mmol/L (3.5-5.1); Prothrombin Time 12.5 Seconds (9.0-12.0)
[2019-12-13 07:51] LABS: Bilirubin,Total 0.6 mg/dl (0.2-1); Globulin 3.4 gm/dl (2.5-4.0); Total Protein 6.7 gm/dl (6.4-8.2)
[2019-12-13 07:53] LABS: Partial Thromboplastin Time 72.3 Seconds (21.0-31.0)
[2019-12-13] MEDS ORDERED: INSULIN GLARGINE SOLOSTAR 100 UNITS/ML 3 ML PEN SC ONE (09:00)
--- NOTE | 2019-12-13 09:26 | Hospitalist Progress Note ---
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 The patient last saw Cardiology 1 year ago. The patient says since last 1 year, she did not saw any doctors. She stopped taking her medications since about a year ago because she could not afford the medications" because of loss of health insurance -presented to the ED on 12/11/2019 with shortness of breath symptoms and also because of hyperglycemia and found to have atrial fibrillation with rapid ventricular response -continue to monitor on telemetry, still with atrial fibrillation but heart rate controlled. transition from metoprolol 25 mg q6 hours to 100 mg daily starting on 12/13/2019 -patient has been on IV heparin drip and cardiology allowing for warfarin 5 mg to be started on 12/12/2019 with the IV heparin drip fro stroke risk prevention of atrial fibrillation. Patient agreeable to stay as inpatient for now but as other aspects of health are improving am concerned that given her financial issues that patient will not stay until bridged full to INR between 2 to 3, o ngoing discussion with patient on day by day basis. as of 12/13/2019, continue Iv heparin fro now and give warfarin 7.5 mg daily (2) Diabetes type 2, uncontrolled: Diabetes mellitus uncontrolled with hyperglycemia -Hemoglobin 9.3 on 12/11/2019 -off diabetes medications at home -on sliding scale insulin -Lantus titration currently as Lantus 15 units daily with metformin and sliding scale insulin as needed -diabetic education, will need outpatient ophthalmology testing because of diabetes -diabetic diet Dyslipidemia -LDL 93, give statin (3) Hypertension: -initial admission blood pressures improved with treatment -continue current blood pressure medication as losartan 50 mg/day and amlodipine 10 mg daily and atorvastatin (4) CHF (congestive heart failure): elevated BNP and mild pulmonary congestion on admission chest X ray -Ejection fraction is 40 to 45% and moderate global hypokinesis of left ventricle. as per cardiology "Echocardiogram reviewed demonstrates mild diffuse LV dysfunction. Troponins negative. Suspect secondary to marked hypertension and uncontrolled atrial fibrillation." -initially received Lasix. Lasix held for now as symptomatic improvement based on breathing and chest X ray Sleep apnea, non tolerant with the CPAP Morbid obesity with BMI 39.1 -on room air currently. -will need primary care involvement for weight loss strategies Depression -not on previous home medications of Prozac and bupropion -patient was tearful when discussing with her current health issues on 12/11/2019. currently her mood is better DVT prophylaxis: on IV heparin drip with coumadin. INR is 1.2 Full Code Admission and Anticipated Discharge Date Admission Date: December 11, 2019 Subjective no acute events. patient remains in atrial fibrillation. on IV heparin. no distress. breathing on room air. no chest pain. no abdomen pain. no nausea. no vomiting Review of Systems Review of Systems: All systems reviewed & are unremarkable except as noted in Subjective Physical Exam Constitutional: + obese and comfortable Eyes: PERRL, conjunctivae normal, anicteric sclerae EOM intact bilaterally ENMT: external ear and nose normal, oropharynx normal Neck: normal visual inspection Respiratory: normal respiratory effort, lungs clear to auscultation Cardiovascular: Rate/Rhythm: regular rhythm and + irregularly irregular Gastrointestinal (Abdomen): normal bowel sounds, soft, nontender, no hepatosplenomegaly Musculoskeletal: Head/Neck/Chest: normocephalic and head atraumatic Neurologic: PERRL, EOMI, accommodation nl, no face palsy, no dysarthria CN's II-XI intact bilaterally Psychiatric: Orientation: alert, oriented x 3 and cooperative Results & Data Results & Data ([facility]) Vital Signs (Past 12 Hours) Vital Signs Temp Pulse Resp BP BP Pulse Ox 12/13/19 07:05 36.5 C 97 H 20 146/99 H 93 12/13/19 04:00 36.6 C 84 18 104/69 94 12/12/19 23:40 37.0 C 90 18 146/87 H 93 (1) CHF (congestive heart failure) Heart failure chronicity: acute Heart failure type: unspecified Qualified Code(s): I50.9 - Heart failure, unspecified
--- NOTE | 2019-12-13 10:05 | Electrocardiogram Report ---
Test Reason : Blood Pressure : / mmHG Vent. Rate : 090 BPM Atrial Rate : 241 BPM P-R Int : 000 ms QRS Dur : 074 ms QT Int : 408 ms P-R-T Axes : 000 019 049 degrees QTc Int : 499 ms Atrial fibrillation Prolonged QT Abnormal ECG When compared with ECG of 11-DEC-2019 04:39, Vent. rate has decreased BY 57 BPM Confirmed by Paulo Robertson [id number]) on 12/13/2019 10:05:39 AM Referred By: REFERRED SELF Confirmed By:Paulo Robertson
--- NOTE | 2019-12-13 14:16 | Cardiology Progress Note ---
Date of Service December 13, 2019 Assessment & Plan (1) Atrial fibrillation with rapid ventricular response: Patient is a 59-year-old female with hypertension and hypertensive heart disease previously controlled with multiple drug regimen which included as of 1 year ago amlodipine 10 mg p.o. daily carvedilol 25 mg p.o. twice daily hydralazine 100 mg a.m. 100 mg mg noon and 50 mg p.m., losartan 100 mg daily hydrochlorothiazide 25 mg/day Patient presents now off medications for several months with hypertensive urgency, congestive heart failure and atrial fibrillation with rapid response time and duration uncertain. Patient is responding to IV diuretics and heart rate slowed with low-dose beta- paco Plan: Blood pressure significantly improved with reinstitution of previous medications. She remains in atrial fibrillation that is rate controlled. Continue current dose of metoprolol and will transition to succinate 100 mg daily in the a.m. for ease of use. Continue losartan and amlodipine. Continue warfarin bridge with heparin until INR therapeutic. We will hold diuretics in the a.m. and follow volume status clinically. Okay to DC telemetry from a cardiac standpoint. (2) Hypertensive urgency, malignant: Secondary to medication noncompliance We will plan on outpatient Lexiscan nuclear stress test to complete ischemic work-up. (3) CHF (congestive heart failure): Echocardiogram reviewed demonstrates mild diffuse LV dysfunction. Troponins negative Suspect secondary to marked hypertension and uncontrolled atrial fibrillation (4) LILY (obstructive sleep apnea): Subjective Patient seen and examined, chart reviewed. States that she is feeling well today. And denies any chest pain, shortness of breath, palpitations, lightheadedness, dizziness or syncope. She is anxious for discharge so she may return to work. Telemetry reviewed: Atrial fibrillation rate controlled. Review of Systems Review of Systems: All systems reviewed & are unremarkable except as noted in HPI & below Physical Exam Physical Exam: General: Awake, alert and oriented x 3. No acute distress. HEENT: Normocephalic, atraumatic. Pupils equal, round and reactive to light and accommodation. Extraocular muscles are intact. Anicteric sclera. Moist mucous membranes. Neck: No JVD. No bruit. Cardiovascular: irregularly irregular, unable to appreciate murmur, rub or gallop. Pulmonary: Clear to auscultation bilaterally. No rales, rhonchi, or wheezing. Abdomen: Bowel sounds x 4, soft. No rebound, guarding or tenderness. No organomegaly. Extremities: No clubbing, cyanosis or edema. +2 pedal pulses bilaterally. Skin: Warm and dry. Results & Data Vital Signs (Past 12 Hours) Vital Signs Temp Pulse Resp BP BP Pulse Ox 12/13/19 10:56 36.8 C 89 19 129/76 94 12/13/19 07:05 36.5 C 97 H 20 146/99 H 93 12/13/19 04:00 36.6 C 84 18 104/69 94 (1) CHF (congestive heart failure) Heart failure chronicity: acute Heart failure type: unspecified Qualified Code(s): I50.9 - Heart failure, unspecified
[2019-12-13 15:17] LABS: Partial Thromboplastin Ratio 2.2
[2019-12-13 15:18] LABS: Partial Thromboplastin Time 60.1 Seconds (21.0-31.0)
[2019-12-13] MEDS ORDERED: WARFARIN SOD 7.5 MG TAB PO SCH (16:00)
[2019-12-13] MEDS ORDERED: POTASSIUM CHLORIDE 20 MEQ TABCR PO STA (18:09)
[2019-12-13] MEDS ORDERED: POTASSIUM CHLORIDE / WTR 10 MEQ/100 ML PLCT IV ONE (18:15)
[2019-12-13] MEDS: AMLODIPINE BESYLATE 5 MG TAB PO SCH (20:53)
[2019-12-14] MEDS: HEPARIN SODIUM/DEXTROSE 25,000 UNITS/500 ML BAG IV SCH (04:32)
[2019-12-14 07:05] LABS: INR 1.5 (0.9-1.1); Partial Thromboplastin Ratio 2.4; Prothrombin Time 15.2 Seconds (9.0-12.0)
[2019-12-14 07:08] LABS: Partial Thromboplastin Time 65.8 Seconds (21.0-31.0)
[2019-12-14 07:21] LABS: BUN Creatinine Ratio 17.6 (10-20); Calcium 9.5 mg/dl (8.5-10.1); Creatinine Clr Calc Pharmacy 73.5 ml/min; Est GFR (African American) 80.5; Est GFR (Non-African American) 69.5; Potassium 3.9 mmol/L (3.5-5.1)
[2019-12-14] MEDS ORDERED: WARFARIN SOD 5 MG TAB PO ONE (08:39)
[2019-12-14] MEDS ORDERED: INSULIN GLARGINE SOLOSTAR 100 UNITS/ML 3 ML PEN SC SCH (09:00)
[2019-12-14] MEDS: ASPIRIN 81 MG ECTAB PO SCH (09:21)
[2019-12-14] MEDS: METFORMIN HCL 500 MG TAB PO SCH (09:21)
[2019-12-14] MEDS: METOPROLOL SUCC 50MG EXT REL TAB PO SCH (09:21)
[2019-12-14] MEDS: LOSARTAN POTASSIUM 50 MG TAB PO SCH (09:21)
[2019-12-14] MEDS: MAGNESIUM OXIDE 400 MG TAB PO SCH (09:21)
[2019-12-14] MEDS: ATORVASTATIN 40 MG TAB PO SCH (09:21)
[2019-12-14] MEDS: INSULIN ASPART 100 UNITS/ML 3 ML PEN SC SCH ×2 (09:22→13:11)
[2019-12-14] MEDS ORDERED: hydroCHLOROthiazide 25 MG TAB PO SCH (11:36)
--- NOTE | 2019-12-14 11:46 | Hospitalist Progress Note ---
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 The patient last saw Cardiology 1 year ago. The patient says since last 1 year, she did not saw any doctors. She stopped taking her medications since about a year ago because she could not afford the medications" because of loss of health insurance -presented to the ED on 12/11/2019 with shortness of breath symptoms and also because of hyperglycemia and found to have atrial fibrillation with rapid ventricular response -continue to monitor on telemetry, still with atrial fibrillation but heart rate controlled. transition from metoprolol 25 mg q6 hours to 100 mg daily starting on 12/13/2019 -patient has been on IV heparin drip and cardiology allowing for warfarin 5 mg to be started on 12/12/2019 with the IV heparin drip fro stroke risk prevention of atrial fibrillation. Patient agreeable to stay as inpatient for now but as other aspects of health are improving am concerned that given her financial issues that patient will not stay until bridged full to INR between 2 to 3, o ngoing discussion with patient on day by day basis. 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 Patient advised to follow up primary care and cardiology doctor in regards to diabetes control blood pressure control atrial fibrillation and now on warfarin (also called couamdin, with the goal INR level between 2 to 3. the discharge INR is 1.5 as patient does not wish to stay further inpatient for IV heparin until bridged to goal INR with coumadin, discharge on warfarin 5 mg daily for now). patient already given coumadin 5 mg on 12/14/2019 prior to discharge and is advised that the next 5 mg daily warfarin dosing starts on 12/15/2019 when at home and reduced ejection fraction of the heart (Ejection fraction is 40 to 45% and moderate global hypokinesis of left ventricle. as per cardiology "Echocardiogram reviewed demonstrates mild diffuse LV dysfunction. Troponins negative. Suspect secondary to marked hypertension and uncontrolled atrial fibrillation.") upcoming appointments 12/22/2019 10:40 AM Provider Jessica Alonso, DO Department Family Practice [facility] Patient may return to work without work restrictions by 12/24/2019 so that she can go to follow up to primary care doctor for re-assessment 12/29/2019 2:30 PM Provider Michelle Donovan DO Department Cardiology, [facility] paper discharge prescription of [employer] Ultra test strips to check 2x/day given to patient discharge medications sent electronically to [facility] pharmacy on [address] (2) Diabetes type 2, uncontrolled: Diabetes mellitus uncontrolled with hyperglycemia -Hemoglobin 9.3 on 12/11/2019 -off diabetes medications at home -on sliding scale insulin -Lantus titration currently as Lantus 15 units daily with metformin and sliding scale insulin as needed -diabetic education, will need outpatient ophthalmology testing because of diabetes -diabetic diet Dyslipidemia -LDL 93, give statin (3) Hypertension: -initial admission blood pressures improved with treatment -continue current blood pressure medication as losartan 50 mg/day and amlodipine 10 mg daily and atorvastatin (4) CHF (congestive heart failure): elevated BNP and mild pulmonary congestion on admission chest X ray -Ejection fraction is 40 to 45% and moderate global hypokinesis of left ventricle. as per cardiology "Echocardiogram reviewed demonstrates mild diffuse LV dysfunction. Troponins negative. Suspect secondary to marked hypertension and uncontrolled atrial fibrillation." -initially received Lasix. Lasix held for now as symptomatic improvement based on breathing and chest X ray Sleep apnea, non tolerant with the CPAP Morbid obesity with BMI 39.1 -on room air currently. -will need primary care involvement for weight loss strategies Depression -not on previous home medications of Prozac and bupropion -patient was tearful when discussing with her current health issues on 12/11/2019. currently her mood is better DVT prophylaxis: on IV heparin drip with coumadin. INR is 1.2 Full Code Admission and Anticipated Discharge Date Admission Date: December 11, 2019 Subjective no shortness of breath. breathing on room air. no chest pain. no palpitations. continues to be in rate controlled atrial fibrillation. no dizziness. no headache. the discharge INR is 1.5 as patient does not wish to stay further inpatient for IV heparin until bridged to goal INR with coumadin, discharge on warfarin 5 mg daily for now) Review of Systems Review of Systems: All systems reviewed & are unremarkable except as noted in Subjective Physical Exam Constitutional: + obese and comfortable Eyes: PERRL, conjunctivae normal, anicteric sclerae EOM intact bilaterally ENMT: external ear and nose normal, oropharynx normal Neck: normal visual inspection Respiratory: normal respiratory effort, lungs clear to auscultation Cardiovascular: Rate/Rhythm: regular rhythm and + irregularly irregular Gastrointestinal (Abdomen): normal bowel sounds, soft, nontender, no hepatosplenomegaly Musculoskeletal: Head/Neck/Chest: normocephalic and head atraumatic Neurologic: PERRL, EOMI, accommodation nl, no face palsy, no dysarthria CN's II-XI intact bilaterally Psychiatric: Orientation: alert, oriented x 3 and cooperative Results & Data Results & Data ([facility]) Vital Signs (Past 12 Hours) Vital Signs Temp Pulse Resp BP BP Pulse Ox 12/14/19 11:18 36.9 C 87 16 158/83 H 95 12/14/19 07:21 36.5 C 67 16 162/91 H 95 12/14/19 04:05 36.6 C 89 18 136/87 94 (1) CHF (congestive heart failure) Heart failure chronicity: acute Heart failure type: unspecified Qualified Code(s): I50.9 - Heart failure, unspecified
--- NOTE | 2019-12-14 11:52 | Discharge Summary ---
Date of Service December 14, 2019 Admission HPI Per Admitting Provider DATE OF ADMISSION: 12/11/2019 CHIEF COMPLAINT: Shortness of breath. 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 The patient last saw Cardiology 1 year ago. The patient says since last 1 year, she did not saw any doctors. She stopped taking her medications since about a year ago because she could not afford the medications. She works in the [employer]. Since about a week, she is getting short of breath which is progressively getting worse. Today she woke up at 4:00 in the morning with acute shortness of breath. She could not breathe and that is the reason she came to the ER. She felt some pressure in the chest, felt sweaty. Has some headache. Denies any fevers, but has some feeling of cold. No nausea, no vomiting. Has some cough on and off, dry cough. Has some runny nose from her allergies and [place]. Denies any earaches. No blurred visions, no sore throat, no dysphagia, no abdominal pain. Normal bladder movements, somewhat constipated. Denies any blood in the stools, no hematuria. No swelling in the legs. She says she does not sleep good. Ambulating okay in the house. Principal Diagnosis Atrial fibrillation with rapid ventricular response Diabetes type 2, uncontrolled with hyperglycemia Hypertension CHF (congestive heart failure) Morbid obesity with BMI 39.1 Sleep apnea, non tolerant with the CPAP Discharge Exam Constitutional + obese and comfortable Eyes PERRL, conjunctivae normal, anicteric sclerae EOM intact bilaterally ENMT external ear and nose normal, oropharynx normal Neck normal visual inspection Respiratory normal respiratory effort, lungs clear to auscultation Cardiovascular Rate/Rhythm: regular rhythm and + irregularly irregular Gastrointestinal (Abdomen) normal bowel sounds, soft, nontender, no hepatosplenomegaly Musculoskeletal Head/Neck/Chest: normocephalic and head atraumatic Neurologic PERRL, EOMI, accommodation nl, no face palsy, no dysarthria CN's II-XI intact bilaterally Psychiatric Orientation: alert, oriented x 3 and cooperative Discharge Data Allergies Allergy/AdvReac Type Severity Reaction Status Date / Time felodipine Allergy Unknown . Unverified 12/11/19 05:30 Consultations 12/11/19 05:59 ED Decision to Admit Stat 12/11/19 08:16 Consult Cardiology Routine Consult Case Management - Discharge Planning Routine Hospital Course (1) Atrial fibrillation with rapid ventricular response: -"This is a 59-year-old female with past medical history significant for type 2 diabetes; hyperlipidemia; obstructive sleep apnea, non tolerant to CPAP; hypertensive heart disease; history of hypertension; history of aortic valve sclerosis; obesity; history of uterine leiomyoma; history of ocular hypertension; depression,panic disorder, history of paroxysmal supraventricular tachycardia, the patient is 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 The patient last saw Cardiology 1 year ago. The patient says since last 1 year, she did not saw any doctors. She stopped taking her medications since about a year ago because she could not afford the medications" because of loss of health insurance -presented to the ED on 12/11/2019 with shortness of breath symptoms and also because of hyperglycemia and found to have atrial fibrillation with rapid ventr icular response -continue to monitor on telemetry, still with atrial fibrillation but heart rate controlled. transition from metoprolol 25 mg q6 hours to 100 mg daily starting on 12/13/2019 -patient has been on IV heparin drip and cardiology allowing for warfarin 5 mg to be started on 12/12/2019 with the IV heparin drip fro stroke risk prevention of atrial fibrillation. Patient agreeable to stay as inpatient for now but as other aspects of health are improving am concerned that given her financial issues that patient will not stay until bridged full to INR between 2 to 3, ongoing discussion with patient on day by day basis. as of 12/13/2019, continue Iv heparin give warfarin 7.5 mg 12/14/2019: patient is educated about medication adherence and was instructed on how to client advisor herself insulin by hospital team. Patient advised to follow up primary care and cardiology doctor in regards for weight loss strategies to diabetes control blood pressure control atrial fibrillation and now on warfarin (also called couamdin, with the goal INR level between 2 to 3. the discharge INR is 1.5 as patient does not wish to stay further inpatient for IV heparin until bridged to goal INR with coumadin, discharge on warfarin 5 mg daily for now). patient already given coumadin 5 mg on 12/14/2019 prior to discharge and is advised that the next 5 mg daily warfarin dosing starts on 12/15/2019 when at home and reduced ejection fraction of the heart (Ejection fraction is 40 to 45% and moderate global hypokinesis of left ventricle. as per cardiology "Echocardiogram reviewed demonstrates mild diffuse LV dysfunction. Troponins negative. Suspect secondary to marked hypertension and uncontrolled atrial fibrillation.") upcoming appointments 12/22/2019 10:40 AM Provider Jessica Alnoso, DO Department Family Practice [facility] Patient may return to work without work restrictions by 12/24/2019 so that she can go to follow up to primary care doctor for re-assessment 12/29/2019 2:30 PM Provider Michelle Donovan, DO Department Cardiology, [facility] paper discharge prescription of OneTouch Ultra test strips to check 2x/day given to patient discharge medications sent electronically to [facility] pharmacy on [address] (2) Diabetes type 2, uncontrolled: Diabetes mellitus uncontrolled with hyperglycemia -Hemoglobin 9.3 on 12/11/2019 -off diabetes medications at home -on sliding scale insulin -Lantus titration currently as Lantus 15 units daily with metformin and sliding scale insulin as needed. discharge on Lantus 15 units daily and with metformin -diabetic education, will need outpatient ophthalmology testing because of diabetes -diabetic diet Dyslipidemia -LDL 93, give statin (3) Hypertension: -initial admission blood pressures improved with treatment -continue current blood pressure medication as losartan 50 mg/day and amlodipine 10 mg daily and atorvastatin. in addition give HCTZ 12.5 mg daily and discharge on this dosing (4) CHF (congestive heart failure): elevated BNP and mild pulmonary congestion on admission chest X ray -Ejection fraction is 40 to 45% and moderate global hypokinesis of left ventricle. as per cardiology "Echocardiogram reviewed demonstrates mild diffuse LV dysfunction. Troponins negative. Suspect secondary to marked hypertension and uncontrolled atrial fibrillation." -initially received Lasix. Lasix held for now as symptomatic improvement based on breathing and chest X ray -in addition give HCTZ 12.5 mg daily and discharge on this dosing Sleep apnea, non tolerant with the CPAP Morbid obesity with BMI 39.1 -on room air currently. -will need primary care involvement for weight loss strategies Depression -not on previous home medications of Prozac and bupropion -patient was tearful when discussing with her current health issues on 12/11/2019. currently her mood is better DVT prophylaxis: discharge on coumadin Full Code Total Time Total Time Spent Total Time Spent (In Minutes): 40 minutes Total Time Includes: Examination of the Patient, Discharge Planning, Medication Reconciliation and Communication With Other Providers Discharge Plan Discharge Items Patient Disposition: Home - Self-Care Reason For Visit: SOB Discharge Diagnosis: Atrial fibrillation with rapid ventricular response Diabetes type 2, uncontrolled with hyperglycemia Hypertension CHF (congestive heart failure) Morbid obesity with BMI 39.1 Sleep apnea, non tolerant with the CPAP Condition on Discharge: Good Activity: Per Instructions section Non-emergency contact: Primary Care Provider and City Planner Call non-emergency contact if: you have any medication questions Follow-up/Referrals: Jessica Alonso DO [Primary Care Provider] - 12/22/19 10:40 am Diet: Carb Consistent or DM2 Addtl Attending Provider Instructions: upcoming appointments 12/22/2019 10:40 AM Provider Jessica Alonso DO Department Family Practice [facility] Patient may return to work without work restrictions by 12/24/2019 so that she can go to follow up to primary care doctor for re-assessment 12/29/2019 2:30 PM Provider Michelle Donovan DO Department Cardiology, [facility] Addtl Can Maker Provider Instructions: paper discharge prescription of OneTouch Ultra test strips to check 2x/day given to patient discharge medications sent electronically to [facility] pharmacy on [address] patient is educated about medication adherence and was instructed on how to client advisor herself insulin by hospital team. Patient advised to follow up primary care and cardiology doctor in regards for weight loss strategies to diabetes control blood pressure control atrial fibrillation and now on warfarin (also called couamdin, with the goal INR level between 2 to 3. the discharge INR is 1.5 as patient does not wish to stay further inpatient for IV heparin until bridged to goal INR with coumadin, discharge on warfarin 5 mg daily for now). patient already given coumadin 5 mg on 12/14/2019 prior to discharge and is advised that the next 5 mg daily warfarin dosing starts on 12/15/2019 when at home and reduced ejection fraction of the heart (Ejection fraction is 40 to 45% and moderate global hypokinesis of left ventricle. as per cardiology "Echocardiogram reviewed demonstrates mild diffuse LV dysfunction. Troponins negative. Suspect secondary to marked hypertension and uncontrolled atrial fibrillation.") Pending Studies at Discharge: No Stand-Alone Forms: My [facility], Smoking Cessation Medications and DC Order Prescriptions: New atorvastatin 40 mg Tablet 40 mg PO DAILY 30 Days Qty: 30 RF: 0 amlodipine [Norvasc] 5 mg Tablet 10 mg PO PM 30 Days Qty: 60 RF: 0 losartan 50 mg Tablet 50 mg PO QAM 30 Days Qty: 30 RF: 0 metoprolol succinate 100 mg tablet extended release 24 hr 100 mg PO QAM 30 Days Qty: 30 RF: 0 Lantus Solostar U-100 Insulin 100 unit/mL (3 mL) Insulin Pen 15 unit SC DAILY 30 Days Qty: 6 RF: 0 metformin 1,000 mg tablet 1,000 mg PO BIDM 30 Days Qty: 60 RF: 0 warfarin 5 mg tablet 5 mg PO DAILY 30 Days Qty: 30 RF: 0 hydrochlorothiazide 12.5 mg tablet 12.5 mg PO DAILY 30 Days Qty: 30 RF: 0 Continued aspirin 81 mg Tablet,Delayed Release (Dr/Ec) 81 mg PO DAILY RF: 0 cholecalciferol (vitamin D3) 25 mcg (1,000 unit) Tablet 25 mcg PO DAILY RF: 0 cyanocobalamin (vitamin B-12) 1,000 mcg 1,000 mcg PO DAILY RF: 0 Discontinued amlodipine 10 mg Tablet 10 mg PO DAILY RF: 0 atorvastatin 40 mg Tablet 40 mg PO DAILY RF: 0 carvedilol [Coreg] 25 mg Tablet 25 mg PO BID RF: 0 ferrous sulfate 325 mg (65 mg iron) Tablet 325 mg PO BID RF: 0 hydralazine 100 mg Tablet 100 mg PO UD RF: 0 losartan-hydrochlorothiazide 100-25 mg Tablet 1 tab PO DAILY RF: 0 metformin 1,000 mg Tablet 1,000 mg PO BID RF: 0 glipizide 10 mg Tablet 10 mg PO DAILY RF: 0 fluoxetine 20 mg capsule 20 mg PO DAILY RF: 0 bupropion HCl 300 mg tablet extended release 24 hr 300 mg PO DAILY RF: 0 Tradjenta 5 mg Tablet 5 mg PO DAILY RF: 0 spironolactone 25 mg 25 mg PO DAILY RF: 0 Discharge Orders: Discharge Order (Routine); Ordered 12/14/19 Ordered By: Varghese Bone Admission Data Admit Date/Time: 12/11/19 06:44 Attending Provider: Varghese Bone Admit Provider: Adam Cid Primary Care Provider: Jessica Alonso Other Providers: Adam Cid ; Charanjit Lovell ; Vamshi Suresh ; Sb Arana ; Robert Hernandez ; Darrel Alejo ; Saad Quan ; Reanna Givens ; Michelle Donovan ; Jeovany Rey
--- NOTE | 2019-12-14 12:20 | Cardiology Progress Note ---
Date of Service December 14, 2019 Assessment & Plan (1) Atrial fibrillation with rapid ventricular response: Patient is a 59-year-old female with hypertension and hypertensive heart disease previously controlled with multiple drug regimen which included as of 1 year ago amlodipine 10 mg p.o. daily carvedilol 25 mg p.o. twice daily hydralazine 100 mg a.m. 100 mg mg noon and 50 mg p.m., losartan 100 mg daily hydrochlorothiazide 25 mg/day Patient presents now off medications for several months with hypertensive urgency, congestive heart failure and atrial fibrillation with rapid response time and duration uncertain. Patient is responding to IV diuretics and heart rate slowed with low-dose beta- paco Plan: Patient states that she wishes to be discharged at this time. Counseled at great lengths at the risk for cardioembolic event and she states that she understands, she is accepting the risk but wishes to be discharged. Would discharge home on current dose of metoprolol, aspirin, atorvastatin, losartan, hydrochlorothiazide and amlodipine. We will need to follow-up with the [facility] clinic as an outpatient. Given the fact that she had difficulty affording her medications over the last year would recommend establishing with [facility] which may be able to provide her no cost healthcare. She states that she appreciates this recommendation and will do so, we will also ask our case management team for aid in this. My office will call to arrange cardiac follow-up and outpatient nuclear stress testing. (2) Hypertensive urgency, malignant: Secondary to medication noncompliance We will plan on outpatient Lexiscan nuclear stress test to complete ischemic work-up. (3) CHF (congestive heart failure): Echocardiogram reviewed demonstrates mild diffuse LV dysfunction. Troponins negative Suspect secondary to marked hypertension and uncontrolled atrial fibrillation (4) LILY (obstructive sleep apnea): Subjective Patient seen and examined, chart reviewed. States that she feels well and is anxious for discharge. Does not wish to remain admitted until INR becomes therapeutic, risks of cardioembolic stroke were discussed at great length with her. Denies any complaints of chest pain, shortness of breath, palpitations, lightheadedness, dizziness or syncope. Telemetry reviewed: Atrial fibrillation rate controlled in the 80s to 90s. Review of Systems Review of Systems: All systems reviewed & are unremarkable except as noted in HPI & below Physical Exam Physical Exam: General: Awake, alert and oriented x 3. No acute distress. HEENT: Normocephalic, atraumatic. Pupils equal, round and reactive to light and accommodation. Extraocular muscles are intact. Anicteric sclera. Moist mucous membranes. Neck: No JVD. No bruit. Cardiovascular: irregularly irregular, unable to appreciate murmur, rub or gallop. Pulmonary: Clear to auscultation bilaterally. No rales, rhonchi, or wheezing. Abdomen: Bowel sounds x 4, soft. No rebound, guarding or tenderness. No organomegaly. Extremities: No clubbing, cyanosis or edema. +2 pedal pulses bilaterally. Skin: Warm and dry. Results & Data Vital Signs (Past 12 Hours) Vital Signs Temp Pulse Resp BP BP Pulse Ox 12/14/19 11:18 36.9 C 87 16 158/83 H 95 12/14/19 07:21 36.5 C 67 16 162/91 H 95 12/14/19 04:05 36.6 C 89 18 136/87 94 (1) CHF (congestive heart failure) Heart failure chronicity: acute Heart failure type: unspecified Qualified Code(s): I50.9 - Heart failure, unspecified
--- NOTE | 2019-12-14 12:29 | Electrocardiogram Report ---
Test Reason : Blood Pressure : / mmHG Vent. Rate : 079 BPM Atrial Rate : 131 BPM P-R Int : 000 ms QRS Dur : 086 ms QT Int : 398 ms P-R-T Axes : 000 016 040 degrees QTc Int : 456 ms Atrial fibrillation ppossible Anterior infarct , age undetermined Abnormal ECG When compared with ECG of 12-DEC-2019 16:36, T wave inversion more evident in Anterior leads Confirmed by Don Milton ([id number]) on 12/14/2019 12:29:40 PM Referred By: REFERRED SELF Confirmed By:Isaiah Milton
--- NOTE | 2019-12-14 12:33 | Electrocardiogram Report ---
Test Reason : Blood Pressure : / mmHG Vent. Rate : 088 BPM Atrial Rate : 000 BPM P-R Int : 000 ms QRS Dur : 082 ms QT Int : 370 ms P-R-T Axes : 000 027 016 degrees QTc Int : 447 ms Atrial fibrillation Abnormal ECG When compared with ECG of 13-DEC-2019 15:37, (unconfirmed) T wave inversion no longer evident in Anterior leads Confirmed by Don Milton ([id number] on 12/14/2019 12:33:18 PM Referred By: REFERRED SELF Confirmed By:Isaiah Milton
[2019-12-14] MEDS ORDERED: WARFARIN SOD 5 MG TAB PO SCH (16:00)
== END 2019-12-14 14:25 | disposition home or self-care (01) | DRG 308 ==
LOC: ED 04:25 → 2S 06:44 → 2N 12-13 18:08